=== PATIENT | male | born 1960 | race Caucasian/White ===

== ENCOUNTER 2018-05-26 11:33 | Inpatient (IN) | payer MEDICARE, MEDICAID ==
[~2018-05-26] VITALS: Ht 182.9 cm; Wt 93.0 kg
--- NOTE | 2018-05-26 11:33 | NUR ---
Patient immediately also requested for food as soon as he came to our facility. NAD, pending MSE and medical clearance from our ER doctor.
--- NOTE | 2018-05-26 11:33 | NUR ---
Patient is here in or ER department for MHU admission. This patient is accepted by Dr Laird for his psych needs and Dr Wilmar Deluca for his internal medicine needs.
[2018-05-26] MEDS ORDERED: RISP2TAB23 PO (12:05)
[2018-05-26] MEDS ORDERED: CYCL5TAB PO (12:05)
[2018-05-26] MEDS ORDERED: PRAZ2CAP2 PO (12:05)
[2018-05-26] MEDS ORDERED: GABA-534 PO (12:05)
[2018-05-26] MEDS ORDERED: TRAM50TA2 PO (12:05)
[2018-05-26] MEDS ORDERED: ARIP15TA3 PO (12:05)
[2018-05-26] MEDS ORDERED: QUET100T PO (12:05)
--- NOTE | 2018-05-26 12:06 | NUR ---
Dr Oshea medically cleared this patient for MHU admission.
--- NOTE | 2018-05-26 12:13 | NUR ---
Patient is now waiting for admitting papers from the ER registration staff Jay. 1:1 sitter observation with mechanical engineering officer Joel villeda.
--- NOTE | 2018-05-26 12:16 | NUR ---
Patient is eating lunch tray with good appetite.
[2018-05-26 12:45] VITALS: BP 138/105
[2018-05-26] MEDS ORDERED: MAG HYDROX/AL HYDROX/SIMETH 30 ML LIQUID UDC PO PRN (12:45)
[2018-05-26] MEDS ORDERED: MAGNESIUM HYDROXIDE 30 ML LIQUID UDC PO PRN (12:45)
[2018-05-26] MEDS ORDERED: LORAZEPAM 1 MG TABLET PO PRN (12:45)
[2018-05-26] MEDS ORDERED: LORAZEPAM 1 MG TABLET PO STA (13:12)
[2018-05-26] MEDS ORDERED: ZOLPIDEM 5 MG TABLET PO PRN (15:45)
[2018-05-26 16:55] VITALS: BP 102/65
[2018-05-26 17:25] LABS: *BILIRUBIN,URIN 1+ (NEGATIVE); *BLOOD, URINE NEGATIVE (NEGATIVE); *CLARITY,URINE CLEAR (CLEAR); *COLOR,URINE YELLOW (YELLOW); *KETONES,URINE TRACE (NEGATIVE); *PROTEIN,URINE NEGATIVE (NEGATIVE); LEUKOCYTE ESTERASE ,URINE NEGATIVE (NEGATIVE); NITRITE, URINE NEGATIVE (NEGATIVE); UGLUCOSE NEGATIVE (NEGATIVE)
[2018-05-26 17:26] LABS: BACTERIA,URINE FEW /HPF (NONE SEEN); RBC,URINE NONE SEEN /HPF (0-3); SQUAMOUS EPITHELIAL CELL,UR FEW /HPF (NONE SEEN); WBC,URINE 0-3 /HPF (0-3)
[2018-05-26 17:33] LABS: *AMPHETAMINE, URINE POSITIVE (NEGATIVE); *BARBITURATE, URINE NEGATIVE (NEGATIVE); *CANNABINOID, URINE NEGATIVE (NEGATIVE); *COCCAINE, URINE NEGATIVE (NEGATIVE); *OPIATE, URINE NEGATIVE (NEGATIVE); *PHENCYCLIDINE SCREEN,URINE NEGATIVE (NEGATIVE)
[2018-05-26 20:38] VITALS: BP 102/57
[2018-05-26] MEDS: PRAZOSIN HCL 1 MG CAPSULE PO SCH (21:00)
[2018-05-27 07:30] VITALS: BP 128/93
[2018-05-27] MEDS: LORAZEPAM 1 MG TABLET PO PRN ×3 (09:56→22:11)
[2018-05-27] MEDS ORDERED: SILVER SULFADIAZINE 1% CREAM 50 GM TP ONE (10:15)
[2018-05-27] MEDS: SILVER NITRATE APPLICATOR STICK EACH TP ONE ×2 (10:19→10:29)
--- NOTE | 2018-05-27 10:36 | NUR ---
Firearms Report: travelers' aid worker completed and submitted [employer] firearms report for a 5150 DTS certification.
[2018-05-27] MEDS: ACETAMINOPHEN 325 MG TABLET PO PRN (14:05)
--- NOTE | 2018-05-27 14:09 | NUR ---
Initial Discharge Plan: Patient currently experiencing Homelessness and is residing in [place]. Patient expressed interest in being discharged to a sober living facility to keep him accountable and hopes to become employed because it prevents S.I. and ETOH/Drug use. As of now, discharge plan is pending and protective services social worker will continue to collaborate with patient and MD on a safe and proper discharge. Patient contact is Lexie Green[[phone]] , mother. Patient wished that his mother only be contacted in emergencies and not as a person to gather information from.
[2018-05-27 15:28] VITALS: BP 142/83
[2018-05-27 20:20] VITALS: BP 115/60
[2018-05-27] MEDS: PRAZOSIN HCL 1 MG CAPSULE PO SCH (20:59)
[2018-05-27] MEDS: QUETIAPINE FUMARATE 200 MG TABLET PO SCH (20:59)
--- NOTE | 2018-05-28 05:46 | NUR ---
No changes t/o shift. Patient slept appox. 10 hours. Patient remains calm and cooperative. Patient remains compliant with medications. Ambulates with steady gait. Patient c/o feeling anxious, Ativan 1 mg. given, stated relief. Patient states "he just wants to get better". Safety and and comfort measures maintained t/o shift. All meds given as ordered. All needs met.
[2018-05-28 07:30] VITALS: BP 123/64
[2018-05-28] MEDS ORDERED: ARIPIPRAZOLE 5 MG TABLET PO SCH (09:00)
[2018-05-28] MEDS: ESCITALOPRAM OXALATE 10 MG TABLET PO SCH (09:13)
[2018-05-28] MEDS: CLOTRIMAZOLE 1% CREAM 30 GM TUBE TOP SCH (09:13)
[2018-05-28] MEDS ORDERED: LISI1TAB9 PO (11:04)
[2018-05-28] MEDS ORDERED: HYDR-3026 PO (11:04)
[2018-05-28] MEDS: QUETIAPINE FUMARATE 25 MG TABLET PO SCH ×2 (13:53→17:24)
[2018-05-28] MEDS: LORAZEPAM 1 MG TABLET PO PRN (14:43)
--- NOTE | 2018-05-28 14:45 | NUR ---
PATIENT FEELING ANXIOUS. GIVEN PRN ATIVAN TO PATIENT
[2018-05-28 15:45] VITALS: BP 152/92
[2018-05-28] MEDS: LISINOPRIL 10 MG TABLET PO SCH (19:44)
[2018-05-28] MEDS: HYDROCHLOROTHIAZIDE 12.5 MG CAPSULE PO SCH (19:44)
[2018-05-28] MEDS: ACETAMINOPHEN 325 MG TABLET PO PRN (20:08)
--- NOTE | 2018-05-28 20:10 | NUR ---
gps: patient c/o gen:pain. tylenol 650 mg po given per patient requested.
[2018-05-28 20:30] VITALS: BP 133/70
[2018-05-28] MEDS: QUETIAPINE FUMARATE 200 MG TABLET PO SCH (20:48)
[2018-05-28] MEDS: PRAZOSIN HCL 1 MG CAPSULE PO SCH (20:49)
--- NOTE | 2018-05-28 21:10 | NUR ---
gps: patient resting quietly. prn effective for pain.
--- NOTE | 2018-05-29 06:33 | NUR ---
GPS: REMAIN CALM AND COOPERATIVE WITH MEDICATIONS AND CARE. NO AGITATION NOTED AT THIS TIME. PATIENT SLEEPING IN HIS BED. SLEPT 9 HRS THROUGH THE NIGHT. CONTINUE PLAN OF CARE.
[2018-05-29 07:30] VITALS: BP 129/61
[2018-05-29] MEDS ORDERED: LORAZEPAM 1 MG TABLET PO PRN (08:30)
[2018-05-29] MEDS: LISINOPRIL 10 MG TABLET PO SCH (08:36)
[2018-05-29] MEDS: HYDROCHLOROTHIAZIDE 12.5 MG CAPSULE PO SCH (08:36)
[2018-05-29] MEDS: ESCITALOPRAM OXALATE 10 MG TABLET PO SCH (08:36)
[2018-05-29] MEDS: QUETIAPINE FUMARATE 25 MG TABLET PO SCH ×3 (08:36→18:11)
[2018-05-29] MEDS: CLOTRIMAZOLE 1% CREAM 30 GM TUBE TOP SCH (08:37)
[2018-05-29] MEDS: ACETAMINOPHEN 325 MG TABLET PO PRN (14:32)
[2018-05-29] MEDS: HYDROXYZINE PAMOATE 25 MG CAPSULE PO PRN (14:34)
[2018-05-29 16:00] VITALS: BP 124/67
--- NOTE | 2018-05-29 16:02 | NUR ---
Discharge Planning: personal care worker faxed patient packet to Joel [ ; ], educational resource coordinator, at [facility]. personal care worker will await to hear if patient is accepted at [facility].
--- NOTE | 2018-05-29 16:14 | NUR ---
GROUP ACTIVITY NOTE: GOAL Patient will actively participate in the group activity of the day or relax in the activity room with fellow patients. INTERVENTION Program Mgr invited patient to participant in the arts and craft group activity held from 2 -2:45 pm in the activity room. RESPONSE Patient expressed disinterest in participating in arts and crafts, but was interested in relaxing in the activities room with peers. Patient participated in the activity for about 20 minutes by watching tv silently. Patient had no interaction with peers and was very cooperative during the activity. PLAN medical records coordinator will invite patient to attend the next group activity that is held.
[2018-05-29 19:30] VITALS: BP 136/87
[2018-05-29] MEDS: QUETIAPINE FUMARATE 200 MG TABLET PO SCH (20:03)
[2018-05-29] MEDS: PRAZOSIN HCL 1 MG CAPSULE PO SCH (20:03)
--- NOTE | 2018-05-30 06:15 | NUR ---
Received Pt sleeping in bed, arouses easily. A+Ox4, Pt guarded and gives minimal disclosure. Pt stated he was here "because I felt helpless, scared, and unsafe, so I went to the hospital. I was suicidal." Pt states he still feels suicidal, "at times, earlier today, but not right now." Pt stated he "did not really want to talk about" if he had a plan. Pt verbally contracted for safety while inside the hospital and promised to seek staff if he was having suicidal thoughts. Presents with flat affect, but cooperative staff direction and compliant with meds. VS stable, denies pain, will continue to monitor.
[2018-05-30 07:30] VITALS: BP 126/77
[2018-05-30] MEDS: LISINOPRIL 10 MG TABLET PO SCH (09:47)
[2018-05-30] MEDS: QUETIAPINE FUMARATE 25 MG TABLET PO SCH ×3 (09:47→17:01)
[2018-05-30] MEDS: ESCITALOPRAM OXALATE 10 MG TABLET PO SCH (09:48)
[2018-05-30] MEDS: HYDROCHLOROTHIAZIDE 12.5 MG CAPSULE PO SCH (09:48)
[2018-05-30] MEDS: CLOTRIMAZOLE 1% CREAM 30 GM TUBE TOP SCH (10:12)
[2018-05-30 15:35] VITALS: BP 126/71
[2018-05-30] MEDS: HYDROXYZINE PAMOATE 25 MG CAPSULE PO PRN (17:08)
--- NOTE | 2018-05-30 18:03 | NUR ---
PATIENT REFUSED lotrimin creme to feet '' i dont need it any more' denied SI AT THIS TIME SEEKING MEDICATION TO HELP HIS AGITATON
[2018-05-30 19:30] VITALS: BP 126/73
--- NOTE | 2018-05-30 19:40 | NUR ---
RECEIVED PATIENT IN HIS ROOM, SITTING IN HIS BED EATING SNACKS. HE IS NOTED A/O X 4. HE IS ABLE TO AMBULATE WITH STEADY GAIT AND ABLE TO MAKE HIS NEEDS KNOWN. UPON INTERVIEW, PATIENT STATED THAT HE CONTINUE HAVING SI. HE STATED THAT SI COME AND GO. HE STATED THAT HIS MEDICATION ARE HELPING, BUT HE REALIZED THAT HE STILL HAVE "A LONG WAY TO GO". HE IS NOTED WITH LOW MOOD WITHDRAWN, FAIR INSIGHT AND JUDGMENT IS NOTED. DENIES AH/VH/HI. HE IS ABLE TO CFS. PATIENT IS HERE VOLUNTARY. SAFETY WAS EMPHASIS.
[2018-05-30] MEDS: ACETAMINOPHEN 325 MG TABLET PO PRN (20:26)
[2018-05-30] MEDS: QUETIAPINE FUMARATE 200 MG TABLET PO SCH (20:26)
--- NOTE | 2018-05-30 20:30 | NUR ---
PATIENT STATED THAT HE IS HAVING A HEADACHE. MILD IN INTENSITY. TYLENOL 650MG PO PRN WAS GIVEN. WILL MONITOR CLOSELY.
[2018-05-30] MEDS: PRAZOSIN HCL 1 MG CAPSULE PO SCH (21:00)
--- NOTE | 2018-05-30 21:30 | NUR ---
PATIENT NOTED SLEEPING COMFORTABLE IN HIS ROOM. TYLENOL 650MG PO PRN WAS EFFECTIVE.
[2018-05-31 07:30] VITALS: BP 128/72
[2018-05-31] MEDS: ESCITALOPRAM OXALATE 10 MG TABLET PO SCH (08:35)
[2018-05-31] MEDS: LISINOPRIL 10 MG TABLET PO SCH (08:35)
[2018-05-31] MEDS: QUETIAPINE FUMARATE 25 MG TABLET PO SCH ×3 (08:35→16:15)
[2018-05-31] MEDS: HYDROCHLOROTHIAZIDE 12.5 MG CAPSULE PO SCH (08:35)
[2018-05-31] MEDS: CLOTRIMAZOLE 1% CREAM 30 GM TUBE TOP SCH (08:38)
[2018-05-31] MEDS: HYDROXYZINE PAMOATE 25 MG CAPSULE PO PRN (12:58)
[2018-05-31 16:00] VITALS: BP 102/73
[2018-05-31] MEDS: ACETAMINOPHEN 325 MG TABLET PO PRN (16:23)
[2018-05-31 20:15] VITALS: BP 101/65
[2018-05-31] MEDS: QUETIAPINE FUMARATE 200 MG TABLET PO SCH (20:22)
[2018-05-31] MEDS: PRAZOSIN HCL 1 MG CAPSULE PO SCH (20:29)
[2018-05-31 20:35] VITALS: BP 117/84
[2018-06-01] MEDS: TRAMADOL HCL 50 MG TABLET PO SCH (06:05)
--- NOTE | 2018-06-01 06:16 | NUR ---
GPS: REMAIN CALM AND COOPERATIVE WITH MEDICATIONS AND CARE. NO AGITATION NOTED AT THIS TIME. SLEPT 8 HRS THROUGH THE NIGHT. C/O GEN: PAIN THIS MORNING ULTRAM 50 MG PO GIVEN FOR PAIN.CONTINUE PLAN OF CARE.
[2018-06-01 07:30] VITALS: BP 120/70
[2018-06-01] MEDS: HYDROCHLOROTHIAZIDE 12.5 MG CAPSULE PO SCH (09:24)
[2018-06-01] MEDS: LISINOPRIL 10 MG TABLET PO SCH (09:25)
[2018-06-01] MEDS: ESCITALOPRAM OXALATE 10 MG TABLET PO SCH (09:25)
[2018-06-01] MEDS: CLOTRIMAZOLE 1% CREAM 30 GM TUBE TOP SCH (09:27)
[2018-06-01] MEDS: QUETIAPINE FUMARATE 25 MG TABLET PO SCH ×3 (09:28→17:33)
[2018-06-01] MEDS ORDERED: INFLUENZA VACCINE 2018-2019 0.5 ML DISP.SYRIN IM ONE (09:45)
[2018-06-01] MEDS ORDERED: PNEUMOCOCCAL 23-VAL P-SAC VAC 0.5 ML VIAL IM ONE (09:45)
[2018-06-01] MEDS: ACETAMINOPHEN 325 MG TABLET PO PRN (13:41)
[2018-06-01 15:08] VITALS: BP 100/68
--- NOTE | 2018-06-01 15:34 | NUR ---
Discharge Planning Note: chemical worker faxed patient packet to Joel [ ; ], crystal machining coordinator, at [facility]. Joel also sent packet to his sister facility, [facility]. Patient received confirmation from Richie [[phone]], crystal machining coordinator, at [facility] stating that patient has been accepted.
[2018-06-01] MEDS: HYDROXYZINE PAMOATE 25 MG CAPSULE PO PRN (15:52)
[2018-06-01] MEDS: PRAZOSIN HCL 1 MG CAPSULE PO SCH (20:01)
[2018-06-01] MEDS: QUETIAPINE FUMARATE 200 MG TABLET PO SCH (20:01)
[2018-06-01 20:44] VITALS: BP 109/78
[2018-06-02] MEDS: ACETAMINOPHEN 325 MG TABLET PO PRN ×3 (04:04→20:48)
[2018-06-02 07:30] VITALS: BP 130/86
[2018-06-02] MEDS: QUETIAPINE FUMARATE 25 MG TABLET PO SCH ×3 (08:47→17:35)
[2018-06-02] MEDS: HYDROCHLOROTHIAZIDE 12.5 MG CAPSULE PO SCH (08:48)
[2018-06-02] MEDS: LISINOPRIL 10 MG TABLET PO SCH (08:48)
[2018-06-02] MEDS: ESCITALOPRAM OXALATE 10 MG TABLET PO SCH (08:48)
[2018-06-02] MEDS: CLOTRIMAZOLE 1% CREAM 30 GM TUBE TOP SCH (08:48)
[2018-06-02] MEDS: HYDROXYZINE PAMOATE 25 MG CAPSULE PO PRN (11:00)
[2018-06-02 15:37] VITALS: BP 93/73
--- NOTE | 2018-06-02 19:10 | NUR ---
RECEIVED PT AWAKE ON BED, AAOX3, DENIES ANY PAIN OR SOB AT THIS TIME. SAFETY MEASURES INITIATED, PLACED BED ON LOW, LOCKED POSITION WITH TWO SIDE RAILS UP.
[2018-06-02] MEDS: QUETIAPINE FUMARATE 200 MG TABLET PO SCH (20:11)
[2018-06-02] MEDS: PRAZOSIN HCL 1 MG CAPSULE PO SCH (20:13)
[2018-06-02 20:16] VITALS: BP 132/81
[2018-06-03 04:00] VITALS: BP 122/78
[2018-06-03 06:29] LABS: BASOPHILS % (AUTO) 0.3 % (0.0-2.0); EOSINOPHILS # (AUTO) 0.1 K/uL (0.0-0.7); EOSINOPHILS % (AUTO) 2.1 % (0.0-7.0); HEMATOCRIT 42.4 % (36.7-47.1); HEMOGLOBIN 14.6 g/dL (12.5-16.3); LYMPHOCYTES # (AUTO) 1.7 K/uL (20.0-40.0); LYMPHOCYTES % (AUTO) 30.4 % (20.5-51.5); MEAN CORPUSCULAR HEMOGLOBIN 33.7 uug (23.8-33.4); MEAN CORPUSCULAR HGB CONC 35 g/dL (32.5-36.3); MEAN CORPUSCULAR VOLUME 97.7 fL (73.0-96.2); MONOCYTES # (AUTO) 0.8 K/uL (2.0-10.0); MONOCYTES % (AUTO) 14.5 % (0.0-11.0); NEUTROPHILS % (AUTO) 52.7 % (38.5-71.5); PLATELET COUNT (AUTO) 196 K/uL (152-348); RED BLOOD CELL COUNT(AUTO) 4.34 MIL/uL (4.06-5.63); WHITE BLOOD COUNT (AUTO) 5.7 K/uL (3.6-10.2)
[2018-06-03 06:43] LABS: BILIRUBIN,TOTAL 0.7 mg/dL (0.2-1.0); CREATININE 0.8 mg/dL (0.6-1.3); MAGNESIUM 1.9 mg/dL (1.8-2.4); PHOSPHOROUS 2.9 mg/dL (2.5-4.9); POTASSIUM 4.6 mmol/L (3.5-5.1); TOTAL PROTEIN, SERUM 7.3 g/dL (6.4-8.2)
--- NOTE | 2018-06-03 06:43 | NUR ---
PT RESTING COMFORTABLY ON BED, ABLE TO SLEEP 8 HOURS. NO SIGNS OF DISCOMFORT NOTED AT THIS TIME. NO EPISODE OF SUICIDAL IDEATIONS THROUGHOUT THE SHIFT. ENCOURAGED TO VERBALIZE FEELINGS. SAFE ENVIRONMENT MAINTAINED AT ALL TIMES, ALL NEEDS ATTENDED AND MET.
[2018-06-03 06:50] LABS: THYROID STIMULATING HORMONE 1.532 mIU/mL (0.358-3.740)
--- NOTE | 2018-06-03 07:38 | NUR ---
Received pt AAO times 4, laying in bed watching television, pt is able to verbalize needs. No immediate s/sx of SOB, pt states 5/10 pain on neck area
[2018-06-03] MEDS: QUETIAPINE FUMARATE 25 MG TABLET PO SCH ×3 (08:16→16:05)
[2018-06-03] MEDS: ESCITALOPRAM OXALATE 10 MG TABLET PO SCH (08:16)
[2018-06-03] MEDS: HYDROCHLOROTHIAZIDE 12.5 MG CAPSULE PO SCH (08:17)
[2018-06-03] MEDS: LISINOPRIL 10 MG TABLET PO SCH (08:17)
[2018-06-03] MEDS: TRAMADOL HCL 50 MG TABLET PO SCH (08:17)
[2018-06-03] MEDS: CLOTRIMAZOLE 1% CREAM 30 GM TUBE TOP SCH (08:18)
--- NOTE | 2018-06-03 08:30 | NUR ---
Pt refused Lotrimin
--- NOTE | 2018-06-03 10:40 | NUR ---
PT REFUSED MEDICATION LOTRIMIN TO BE APPLIED TO HIS FEET Addendum: 06/03/18 at 1041 by JARAD WALLACE RN Amended: Links added.
[2018-06-03 11:54] VITALS: BP 124/76
[2018-06-03] MEDS: ACETAMINOPHEN 325 MG TABLET PO PRN ×2 (13:14→19:50)
[2018-06-03] MEDS: CYCLOBENZAPRINE HCL 10 MG TABLET PO PRN (13:14)
[2018-06-03] MEDS: MECLIZINE HCL 12.5 MG TABLET PO PRN (13:14)
[2018-06-03] MEDS: HYDROXYZINE PAMOATE 25 MG CAPSULE PO PRN (14:08)
[2018-06-03 16:24] VITALS: BP 121/76
--- NOTE | 2018-06-03 17:18 | NUR ---
ORTHOSTATIC BLOOD PRESSURE NOT DONE, ORDERS CALL FOR "ONCE" Addendum: 06/03/18 at 1719 by JARAD WALLACE RN Amended: Links added. Addendum: 06/03/18 at 1750 by JARAD WALLACE RN NOTED ORTHOSTATIC BLOOD PRESSURE NOT DONE SINCE ORDERED BP: LAYING 116/67 HR 58 SITTING 108/74 HR 70 STANDING 98/66 HR 79
[2018-06-03 17:38] VITALS: BP_SYST 108; BP_SYST 116; BP_SYST 98; BP_DIAS 66; BP_DIAS 67; BP_DIAS 74
--- NOTE | 2018-06-03 18:39 | NUR ---
Pt has been compliant with medications and nursing care. Denies SI and hurting himself, states the he still feels sad and depressed at times. Pt also verbalized that he is not diabetic. Pt has been able to verbalize needs. Pt denied changing into a gown offered by the [facility] and myself stated he would want to change into gown tomorrow. No SOB, distress or discomfort ,states VILLASENOR 5/10 on pain scale
--- NOTE | 2018-06-03 19:00 | NUR ---
RECEIVED PATIENT IN BED ALERT, ORIENTED, NO SOB NO CHEST PAIN, NOTED, NO COMPLAIN OF ANY PAIN, PATIENT COOPERATIVE WITH CARE, CONTINENT OF BLADDER AND BOWL. NO S/S OF BEHAVIORAL PROBLEM NOTED, LIKE TO STAY IN HIS ROOM, CONT TO MONITOR.
[2018-06-03 20:00] VITALS: BP 121/73
[2018-06-03] MEDS: PRAZOSIN HCL 1 MG CAPSULE PO SCH (20:32)
[2018-06-03] MEDS: QUETIAPINE FUMARATE 200 MG TABLET PO SCH (20:32)
[2018-06-04] MEDS: ACETAMINOPHEN 325 MG TABLET PO PRN ×2 (03:12→09:30)
[2018-06-04 05:18] VITALS: BP 123/64
--- NOTE | 2018-06-04 06:13 | NUR ---
PATIENT SLEPT MOST OF THE NIGHT, NO SOB NO CHEST PAIN, CONT ON PAIN MANAGEMENT DUE TO HEADACHES, NO BEHAVIORAL PROBLEM NOTED AT THIS TIME. PATIENT COOPERATIVE WITH CARE. AMBULATE TO HALLWAYS AT TIMES. WILL CONTINUE TO MONITOR.....
--- NOTE | 2018-06-04 07:45 | NUR ---
Received pt AAO X's4, patient is able to verbalize needs, noted self-motivation: pt requested to take a shower after breakfast. No immediate s/sx of SOB, or distress
[2018-06-04] MEDS: QUETIAPINE FUMARATE 25 MG TABLET PO SCH ×3 (08:15→16:16)
[2018-06-04] MEDS: ESCITALOPRAM OXALATE 10 MG TABLET PO SCH (08:16)
[2018-06-04] MEDS: HYDROCHLOROTHIAZIDE 12.5 MG CAPSULE PO SCH (08:16)
[2018-06-04] MEDS: LISINOPRIL 10 MG TABLET PO SCH (08:17)
[2018-06-04] MEDS: CLOTRIMAZOLE 1% CREAM 30 GM TUBE TOP SCH (08:17)
--- NOTE | 2018-06-04 09:49 | NUR ---
Explained code status to the patient, patient verbalized he wants to be Full Code. Per FRENCH INSTRUCTOR: okay to change diet from CCHO to REG. Order time 06/03/18 @ 1800
--- NOTE | 2018-06-04 10:24 | NUR ---
pt refused Addendum: 06/04/18 at 1024 by JARAD WALLACE RN Amended: Links added.
[2018-06-04] MEDS: MECLIZINE HCL 12.5 MG TABLET PO PRN (10:49)
--- NOTE | 2018-06-04 10:50 | NUR ---
Per patient: he got up to the bathroom and felt dizzy. Antivert given and educated the patient on getting up slowly and sitting the edge of the bed before getting up. Educated the patient to lean against the nearest wall and guide himself to the floor if he felt he was going to fall. Also reminded the patient to use the call light for assistance
[2018-06-04 11:51] VITALS: BP 117/58
--- NOTE | 2018-06-04 12:08 | NUR ---
Seen and evaluated by FILLING STATION EQUIPMENT MECHANIC
[2018-06-04] MEDS: HYDROXYZINE PAMOATE 25 MG CAPSULE PO PRN ×2 (15:34→22:55)
[2018-06-04] MEDS: TRAMADOL HCL 50 MG TABLET PO SCH (15:35)
[2018-06-04 15:45] VITALS: BP 125/70
--- NOTE | 2018-06-04 16:20 | NUR ---
Per pt and ROTATIONAL MOULDING OPERATOR: pt participated in self-care by taking a shower
--- NOTE | 2018-06-04 18:48 | NUR ---
FREQUENT ROOM CHECK THROUGHOUT THE DAY.PT HAS BEEN COMPLIANT WITH MEDICATIONS AND NURSING CARE. PT VERBALIZED NO SI. PT STATED HE DOES FEEL SAD AND DEPRESSED AT TIME, ENCOURAGED TO VERBALIZE FEEING AND FOR HELP IF NEEDED. NO IMMEDIATE S/SX OF SOB, PAIN, DISTRESS OR DISCOMFORT.
[2018-06-04 19:24] VITALS: BP 120/67
--- NOTE | 2018-06-04 19:30 | NUR ---
RECEIVED PATIENT IN BED, NO COMPLAIN OF PAIN AT THIS TIME. REQUESTING SNACKS, STAYED IN HIS ROOM. PATIENT COOPERATIVE WITH CARE, CALL LIGHT WITHIN REACH.
[2018-06-04] MEDS: QUETIAPINE FUMARATE 200 MG TABLET PO SCH (20:11)
[2018-06-04] MEDS: PRAZOSIN HCL 1 MG CAPSULE PO SCH (20:11)
[2018-06-05] MEDS: ACETAMINOPHEN 325 MG TABLET PO PRN (02:16)
[2018-06-05 03:28] VITALS: BP 133/83
--- NOTE | 2018-06-05 07:30 | NUR ---
PATIENT RESTING COMFORTABLY IN BED. AWAKE/ALERT AT THIS TIME. NO SIGNIFICANT CHANGES THROUGH NIGHTSHIFT. NO SIGNS OF HI/SI, AH/VH. COMPLAINS OF PAIN IN NECK SHOULDERS AND LOWER SPINE. PAIN MANAGEMENT WILL BE PROVIDED. D/C TODAY TO [facility]. SAFETY MEASURES IMPLEMENTED. WILL CONTINUE TO MONITOR.
[2018-06-05] MEDS: QUETIAPINE FUMARATE 25 MG TABLET PO SCH (08:00)
[2018-06-05] MEDS: HYDROXYZINE PAMOATE 25 MG CAPSULE PO PRN (08:00)
[2018-06-05] MEDS: HYDROCHLOROTHIAZIDE 12.5 MG CAPSULE PO SCH (08:00)
[2018-06-05] MEDS: ESCITALOPRAM OXALATE 10 MG TABLET PO SCH (08:01)
[2018-06-05] MEDS: CYCLOBENZAPRINE HCL 10 MG TABLET PO PRN (08:01)
[2018-06-05] MEDS: TRAMADOL HCL 50 MG TABLET PO SCH (08:02)
[2018-06-05 08:05] VITALS: BP 115/84
[2018-06-05] MEDS: LISINOPRIL 10 MG TABLET PO SCH (08:05)
[2018-06-05] MEDS: CLOTRIMAZOLE 1% CREAM 30 GM TUBE TOP SCH (09:00)
--- NOTE | 2018-06-05 10:10 | NUR ---
Discharge Note: Patient will be discharged to [facility] [[address] [place] [address] ] where she lives alone. Transportation will be provided by ambulance. Please arrange ambulance transportation for this patient. Patient is alert and oriented x4 and denies any SI/HI. Patient was briefed on discharge and aware and agreeable to plan. Patient will follow-up with Dr. Doss (groundwater programs director) and Dr. Vuong (psychiatrist). Patient was given outpatient mental health resources including [facility] Crisis Line [ ], [facility] [ ], and National Suicide Prevention Lifeline [ ]. Patient was provided with a brief substance abuse intervention and provided with outpatient resources including [facility] [[address] [place] [address] Tel. (intake at 9am on Weekdays)], [facility] [[address] [place] [address] Tel. ], and [facility] [ ; Email: Beabloo.Neteven@[employer] ], and Substance Abuse and Mental Health Services Administration ([facility]) National Helpline [1-799-827-HELP (1805)]. Patient has completed and signed the homeless patient waiver form. Addendum: 06/05/18 at 1011 by MICK POOLE Confirmation of SNF placement was provided by GIANCARLO, hospital wellness coordinator, at [facility].
== END 2018-06-05 11:45 | DRG 885 ==
LOC: ER 11:33 → GPS 12:20 → GPSOV 06-02 18:55
PROVIDERS: ADMIT Psychiatry & Neurology Psychiatry; ATTEND Nurse Practitioner Acute Care
PROC: 0HBRXZZ Excision of Toe Nail, External Approach (ICD-10-PCS; principal; 2018-05-27)
DX: F31.5 Bipolar disorder, current episode depressed, severe, with psychotic features (principal); E87.1 Hypo-osmolality and hyponatremia; Z88.6 Allergy status to analgesic agent; Z91.048 Other nonmedicinal substance allergy status; F10.20 Alcohol dependence, uncomplicated; Y90.9 Presence of alcohol in blood, level not specified; Z59.0 Homelessness; B35.3 Tinea pedis; B35.1 Tinea unguium; F15.10 Other stimulant abuse, uncomplicated; I95.1 Orthostatic hypotension; E88.09 Other disorders of plasma-protein metabolism, not elsewhere classified; Z96.611 Presence of right artificial shoulder joint; F90.9 Attention-deficit hyperactivity disorder, unspecified type; E11.9 Type 2 diabetes mellitus without complications; Z79.899 Other long term (current) drug therapy
CPT/HCPCS: 36415; 71045; 80307; 83735; 84100; 84443; 85025; 87086; 90686; 90732; 93005; A4663; J8597